=== PATIENT | female | born 1990 | race Caucasian/White ===

== ENCOUNTER 2025-01-05 09:33 | Emergency (ER) | payer MEDICAID, SELFPAY ==
[2025-01-05 09:46] VITALS: BP 146/82; PULSE 116; RESP 16; TEMP 36.3; O2SAT 95; BMI 33.1
--- NOTE | 2025-01-05 10:42 | ED_ITS ---
HPI - General Adult General Date Seen: 01/05/25 Chief complaint: Headache/Migraine Stated complaint: Migraine Time Seen by Provider: 01/05/25 10:40 History of Present Illness HPI narrative: 34 yo F with a past medical history of migraine headaches presents to the ER today for headache that she feels is a bad 1 for migraines. She notes that her headaches tend to come in clusters and she has been having a bad cluster headaches for the past couple of days. Current headache started gradually on Thursday. Actually started when she was at work and exposed to someone who small like cigarette smoke. It got worse over the next couple of days and since Thursday she has been having nausea and vomiting along with it. Headache is intense but is typical for previous migraines. She is not having any fever. No cough. No visual disturbance. No neck stiffness. No focal numbness or weakness in her arms or legs. No confusion. She has been trying to take her [id number] medications such as ibuprofen and Tylenol and also been using at home Zofran 0 DT but is just not helping with her headache. She is not currently on any the other prescription migraine medications. She had been on meds in the past but does not anymore. Related Data Home Medications ?Medication ?Instructions ?Recorded ?Confirmed No Known Home Medications 01/05/2512/12 Allergies Allergy/AdvReac Type Severity Reaction Status Date / Time No Known Drug Allergies Allergy Verified 01/05/25 09:45 [facility] Social History Smoking Status: Current some day smoker Do you use any of these nicotine containing products: Vaping Products How often do you have a drink containing alcohol: never AUDIT-C Alcohol total score: 0 Non-prescribed substance use: denies use Exam Narrative: Exam Narrative: Constitutional: Appears well-developed and well-nourished. Alert. Uncomfortable and has her zhong pulled over her eyes because of photophobia but is conversant and cooperative.. Non toxic. Repeat exam with comprehensive neuro exam performed after headache was improved. HENT: Head: Atraumatic. Nose: Nose normal. Mouth/Throat: Oral mucosa is clear and moist. no trismus. Pharynx normal. Tonsils symmetric. No tonsillar enlargement, erythema, or exudate. Eyes: Conjunctivae normal. EOM normal. Pupils equal, round, and reactive to light. No scleral icterus. Neck: Normal range of motion. Neck supple. No tracheal deviation present. Cardiovascular: Normal rate, regular rhythm. No gallop. No friction rub. No murmur heard. Pulmonary/Chest: Effort normal. No stridor. No respiratory distress. No wheezes. No rales. No rhonchi . Musculoskeletal: RUE: Normal range of motion. No tenderness. No deformity LUE: Normal range of motion. No tenderness. No deformity RLE: Normal range of motion. No edema. No tenderness. No deformity LLE: Normal range of motion. No edema. No tenderness. No deformity Lymph: No cervical adenopathy. Neurological: Mental status normal. Attention normal. Alert and oriented x3. GCS 15. Memory normal. Speech fluent. Cognition normal. Cranial Nerves intact II-XII except I did not formally test gag or visual acuity. EOMI. Palate elevates symmetrically and tongue protrudes in the midline. Strength: 5/5 trapezius on the right and left 5/5 deltoid on the right and left 5/5 biceps on the right and left 5/5 triceps on the right and left 5/5 rubber flap cutter on the right and left 5/5 thumb opposition on the right and le ft 5/5 finger abduction on the right and le ft 5/5 hip flexors (L3) on the right and le ft 5/5 quadriceps (L4) on the right and lef t 5/5 tibialis anterior on the right and l eft 5/5 EHL (L5) on the right and left 5/5 gastrocnemius (S1) on the right and left 5/5 hamstring on the right and left Sensation intact to light touch in both upper extremities (C4-T1) Sensation intact to light touch in Both lower extremities (L4-S1). Finger to nose and coordination normal. Gait normal. Skin: Skin is warm and dry. No rash noted. No pallor. Normal capillary refill. Psychiatric: Normal mood. Normal affect. Const: Vital Signs, click to edit/add: Vital Signs - 24 hr 01/05/25 09:46 Temperature 97.4 F L Pulse Rate [Pulse Oximeter] 116 H Respiratory Rate 16 Blood Pressure [Ri ght Upper Arm] 146/82 H Pulse Oximetry 95 Oxygen Delivery Me thod Room Air Course Course ED Course: Recheck-patient reports that she has had problems in the past with migraine cocktail in in particular had active seizure with Compazine. Therefore I changed orders to Toradol, Zofran, fluids. Recheck-patient feeling much improved after Toradol and Zofran and fluids. She is comfortable discharging home. Headache is down to a 2-3/10. Not resolved but she knows that she goes home sleep she will feel better. Vital Signs Vital signs: Initial Vital Signs Temperature 97.4 F L 01/05/25 09:46 Temperature Source Temporal Artery Scan 01/05/25 09:46 Pulse Rate 116 H 01/05/25 09:46 Pulse Rhythm Regular 01/05/25 09:46 Respiratory Rate 16 01/05/25 09:46 Blood Pressure 146/82 H 01/05/25 09:46 Blood Pressure Mean 103 01/05/25 09:46 Blood Pressure Position Supine 01/05/25 09:46 Pulse Oximetry 95 01/05/25 09:46 Oxygen Delivery Method Room Air 01/05/25 09:46 Vital Signs Temperature 97.4 F L 01/05/25 09:46 Pulse Rate 116 H 01/05/25 09:46 Respiratory Rate 16 01/05/25 09:46 Blood Pressure 146/82 H 01/05/25 09:46 Pulse Oximetry 95 01/05/25 09:46 Oxygen Delivery Method Room Air 01/05/25 09:46 Temperature 97.4 F L 01/05/25 09:46 Pulse Rate 116 H 01/05/25 09:46 Respiratory Rate 16 01/05/25 09:46 Blood Pressure 146/82 H 01/05/25 09:46 Pulse Oximetry 95 01/05/25 09:46 Oxygen Delivery Method Room Air 01/05/25 09:46 Medications Administered Medications: Generic Name Dose Route Start Last Admin Trade Name Freq PRN Reason Stop Dose Admin Sodium Chloride 1,000 mls @ 1,000 mls/hr 01/05/25 10:45 01/05/25 11:19 0.9 % Sodium Chloride 1000 Ml IV 01/05/25 11:44 Infused .Q1H AIYANA Infusion Discontinued Medications Generic Name Dose Route Start Last Admin Trade Name Freq PRN Reason Stop Dose Admin Diphenhydramine HCl 12.5 mg 01/05/25 10:42 01/05/25 10:53 Diphenhydramine 50 Mg/Ml Inj IVP 06/26/25 10:43 Not Given ONCE ONE Ketorolac Tromethamine 15 mg 01/05/25 10:42 01/05/25 10:51 Ketorolac 15 Mg/Ml Inj IVP 01/05/25 10:43 15 mg ONCE ONE Administration Metoclopramide HCl 10 mg 01/05/25 10:42 01/05/25 10:53 Metoclopramide Hcl 5 Mg/Ml Inj IVP 01/05/25 10:43 Not Given ONCE ONE Ondansetron HCl 4 mg 01/05/25 10:48 01/05/25 10:52 Ondansetron 2 Mg/Ml Inj IVP 01/05/25 10:49 4 mg ONCE ONE Administration Medical Decision Making MDM Narrative Medical decision making narrative: Ths patient presents with a headache. A broad differential diagnosis was considered including tension, migraine, analgesic rebound, occipital neuralgia, etc. Other less common but serious causes considered included meningitis, encephalitis, subarachnoid bleed, stroke, tumor, etc. The patient has no signs of serious headache etiologies at this point. Headache is similar in its onset, location, intensity and character to previous migraines. It is a bad migraine but not unprecedented for her. No advanced imaging is indicated, nor is CT/lumbar puncture for SAH. Patient's questions were answered and they feel improved after above interventions in ED. Supportive outpatient management is therefore indicated. Headache precautions given for home. Discharge Plan Discharge Clinical Impression: Headache Patient Disposition: Home, Self-Care Condition: Stable Instructions: Acute Headache (DC) Additional Instructions: As we discussed, please come back to the ER any time if you need help for re- evaluation. Especially, return to the ER if you have worsening severe headache, blurry vision, vision loss, numbness or weakness in your face, arms, or legs, high fever, neck stiffness, or uncontrolled nausea or vomiting. Please recheck with your regular doctor within the next 1-2 weeks to discuss migraine medications to see if there is any your doctor can do to help treat your migraines at home. Prescriptions: No Action No Known Home Medications Follow Up/Referrals: Lorena Walls DO [Primary Care Provider, Family Practice] Stand Alone Forms: [facility] [employer] Info Instructions
[2025-01-05] MEDS: KETOROLAC 15 MG/ML inj IVP (10:51)
[2025-01-05] MEDS: 0.9 % SODIUM CHLORIDE 1000 ml 1,000 ML IV (10:51)
[2025-01-05] MEDS: ONDANSETRON 2 MG/ML inj 4 MG IVP (10:52)
== END 2025-01-05 11:37 | disposition home or self-care (01) ==
PROVIDERS: Emergency Provider Emergency Medicine; PCP Family Medicine
DX: R51.9 Headache, unspecified (principal)
CPT/HCPCS: 96374; 96375; 99283; 99284; J1885; J2405; J7030

== ENCOUNTER 2025-01-27 13:45 | Outpatient (RCR) | payer MEDICAID, SELFPAY | END 2025-02-09 15:26 | disposition home or self-care (01) | PROVIDERS: PCP Family Medicine; Visit Provider Family Medicine | DX: M54.2 Cervicalgia (principal); G89.29 Other chronic pain; M79.18 Myalgia, other site; R53.1 Weakness; Z51.89 Encounter for other specified aftercare | CPT/HCPCS: 97110; 97112; 97161 ==